=== PATIENT | male | born 1990 | race Caucasian/White ===

== ENCOUNTER 2020-07-30 23:45 | Emergency (ER) | payer BC ==
[~2020-07-30] VITALS: Ht 180.3 cm; Wt 120.9 kg
[~2020-07-30 23:45] MED LIST: FLEXERIL OR; ULTRAM50 MG OR
[2020-07-31] MEDS ORDERED: COZAAR25 MG PO (00:02)
[2020-07-31] MEDS ORDERED: SERTRALINE100 MG PO (00:03)
[2020-07-31] MEDS ORDERED: OMEPRAZOLE DR40 MG PO (00:03)
[2020-07-31 00:41] LABS: HEMATOCRIT 40.7 % (39.0-50.0); IMMATURE GRANULOCYTES 0.4 % (0.0-5.0); MEAN CELL VOLUME 83.1 fL CALC (80.0-100.0); MEAN CORPUSCULAR HGB 26.1 pG CALC (26.0-32.0); MEAN CORPUSCULAR HGB CONC 31.4 g/dL CAL (32.0-36.0); NEUT# 10.29 thou/uL (1.82-7.42); RED BLOOD COUNT 4.9 mill/uL (4.70-6.10)
[2020-07-31 00:44] LABS: URINE BILIRUBIN - DIPSTICK NEGATIVE (NEGATIVE); URINE BLOOD DIPSTICK NEGATIVE (NEGATIVE); URINE COLOR YELLOW; URINE GLUCOSE - DIPSTICK NEGATIVE (NEGATIVE); URINE KETONE TRACE mg/dL (NEGATIVE); URINE LEUK ESTERASE NEGATIVE (NEGATIVE); URINE NITRITE - DIPSTICK NEGATIVE (Negative); URINE PROTEIN - DIPSTICK NEGATIVE (NEG-TRACE); URINE SPECIFIC GRAVITY 1.025
[2020-07-31 00:52] LABS: HEMOGLOBIN 12.8 g/dl (14.0-18.0)
[2020-07-31 01:04] LABS: ALBUMIN 3.7 g/dL (3.2-5.0); ALKALINE PHOSPHATASE 97 u/l (38-126); ANION GAP 13 (6-22 (CALC)); BILIRUBIN, TOTAL 0.7 mg/dL (0.0-1.4); BUN 19 mg/dL (9-20); BUN/CREATININE RATIO 20 (12-20 (CALC)); CARBON DIOXIDE 25 mmol/l (22-30); CHLORIDE 100 mmol/l (95-108); CREATININE 0.9 mg/dL (0.7-1.3); GFR > 60 ML/MIN (>=60 (CALC)); GFR FOR AFR.AMER. > 60 ML/MIN (>=60 (CALC)); POTASSIUM 4.6 mmol/l (3.5-5.1); SGOT/AST 17 u/l (17-59)
[2020-07-31 01:05] LABS: SODIUM 133 mmol/l (137-146)
[2020-07-31] MEDS ORDERED: DOXYCYCL HYC100 MG PO (01:27)
[2020-07-31 01:50] VITALS: BP 148/78
--- NOTE | 2020-07-31 14:43 | NUR ---
Patient's mother called for Covid results. Advised that results will not be back until tomorrow. Mother states patient is c/o fatigue, pain and fever. Using Motrin as directed. Advised that patient should return to the ED with any difficulty breathing or other urgent issues. Mother verbalized understanding.
--- NOTE | 2020-08-01 08:37 | NUR ---
Patients mother called for Covid results. Notified of negative Covid results. Mother states patient improving. Advised to call PCP or return to ED with worsening symptoms.
== END 2020-07-31 01:50 | disposition home or self-care (01) | DRG 195 ==
LOC: ED 23:45
PROVIDERS: Family Medicine
DX: J18.9 Pneumonia, unspecified organism (principal); I10 Essential (primary) hypertension; R73.03 Prediabetes; Z20.828 Contact with and (suspected) exposure to other viral communicable diseases

== ENCOUNTER 2023-06-26 03:57 | Emergency (ER) | payer SELFPAY ==
[2023-06-26] VITALS (18 sets, daily range): BP systolic 110–139; BP diastolic 62–94
[~2023-06-26] VITALS: Ht 180.3 cm; Wt 117.0 kg
[~2023-06-26 03:57] MED LIST changes: +COZAAR25 MG PO; +DOXYCYCL HYC100 MG PO; +EPIPEN 2-P0.3 MG/0.3 SC; +OMEPRAZOLE DR40 MG PO; +SERTRALINE100 MG PO; +ZOLOFT50 MG PO
[2023-06-26 04:45] LABS: BASO% 0.2 % (0-3); EOS% 0.8 % (0-8); HEMATOCRIT 45.9 % (39.0-50.0); IMMATURE GRANULOCYTES 0.8 % (0.0-5.0); LYMPH% 13.6 % (15-41); MEAN CELL VOLUME 87.6 fL CALC (80.0-100.0); MEAN CORPUSCULAR HGB 28.2 pG CALC (26.0-32.0); MEAN CORPUSCULAR HGB CONC 32.2 g/dL CAL (32.0-36.0); MONO% 5.3 % (2-13); NEUT# 11.63 thou/uL (1.82-7.42); NEUT% 79.3 % (42-76); RED BLOOD COUNT 5.24 mill/uL (4.70-6.10); RED CELL DISTRI WIDTH 13.2 % (11.5-15.5)
[2023-06-26 04:46] LABS: HEMOGLOBIN 14.8 g/dl (14.0-18.0)
[2023-06-26 04:56] LABS: ALBUMIN 3.8 g/dL (3.2-5.0); ALKALINE PHOSPHATASE 80 u/l (38-126); ANION GAP 11 (6-22 (CALC)); BUN 15 mg/dL (9-20); BUN/CREATININE RATIO 13 (12-20 (CALC)); CARBON DIOXIDE 25 mmol/l (22-30); CHLORIDE 105 mmol/l (95-108); CREATININE 1.2 mg/dL (0.7-1.3); GFR FOR AFR.AMER. > 60 ML/MIN (>=60 (CALC)); GFR OTHER RACES > 60 ML/MIN (>=60 (CALC)); POTASSIUM 4.2 mmol/l (3.5-5.1); SGOT/AST 22 u/l (17-59); SODIUM 137 mmol/l (137-146); TOTAL PROTEIN 7.1 g/dL (6.3-8.2)
[2023-06-26 05:07] LABS: BILIRUBIN, TOTAL 1.4 mg/dL (0.2-1.3)
[2023-06-26 05:09] LABS: URINE COLOR YELLOW
[2023-06-26 05:10] LABS: URINE BILIRUBIN - DIPSTICK NEGATIVE (NEGATIVE); URINE GLUCOSE - DIPSTICK NEGATIVE (NEGATIVE); URINE KETONE Negative (NEGATIVE); URINE PH 5.5 (4.5-8.0)
[2023-06-26 05:11] LABS: URINE BLOOD DIPSTICK NEGATIVE (NEGATIVE); URINE LEUK ESTERASE NEGATIVE (NEGATIVE); URINE NITRITE - DIPSTICK NEGATIVE (Negative); URINE PROTEIN - DIPSTICK NEGATIVE (NEG-TRACE); URINE UROBILINOGEN - DIPSTICK 0.2 E.U./dL (0.2)
[2023-06-26] MEDS ORDERED: ZPAK PO (08:30)
[2023-06-26] MEDS ORDERED: AMOX/K CLAV875 M1 PO (08:30)
[2023-06-26] MEDS ORDERED: METFORMIN HCL500 M1 PO (08:30)
[2023-06-26] MEDS ORDERED: NAPROXEN500 MG PO (08:30)
[2023-06-28] MEDS ORDERED: ZOLOFT50 MG PO (13:44)
[2023-06-28] MEDS ORDERED: OMEPRAZOLE DR40 MG PO (13:44)
[2023-06-28 14:43] LABS: CHOLESTEROL HDL RATIO 4.5 (<4.4 (CALC))
[2023-06-28 15:15] LABS: TSH, 3RD GENERATION 2.34 uIU/mL (0.47 - 4.68)
== END 2023-06-26 09:09 | disposition home or self-care (01) | DRG 313 ==
LOC: ED 03:57
PROVIDERS: Emergency Medicine; Family Medicine
DX: R07.9 Chest pain, unspecified (principal); J90 Pleural effusion, not elsewhere classified; E11.9 Type 2 diabetes mellitus without complications; I10 Essential (primary) hypertension; K21.9 Gastro-esophageal reflux disease without esophagitis; F32.A Depression, unspecified; T46.5X6A Underdosing of other antihypertensive drugs, initial encounter; Z91.128 Patient's intentional underdosing of medication regimen for other reason; Z79.84 Long term (current) use of oral hypoglycemic drugs; Z20.822 Contact with and (suspected) exposure to COVID-19
CPT/HCPCS: Q9967